=== PATIENT | male | born 1980 | race Caucasian/White ===

== ENCOUNTER 2017-01-08 22:56 | Emergency (ER) | payer SELFPAY ==
[2017-01-08] MEDS ORDERED: Metoclopramide 10 MG/2 ML SDV IVPUSH ONE (23:07)
--- NOTE | 2017-01-08 23:08 | EDM.PDOC ---
ED HPI Behavioral Health - General Chief Complaint: Drug or Alcohol Abuse Stated Complaint: [facility] Time Seen by Provider: 01/08/17 23:04 Source of Information: Reports: Patient, EMS notes reviewed, Police Exam Limitations: Reports: No limitations - History of Present Illness INITIAL COMMENTS - FREE TEXT/NARRATIVE: 36-year-old male arrives in the ambulance bay by [facility]. They were called out to him male who had collapsed to the floor and was not breathing. Ange also attended the scene. It appears the patient is a heroin addict and had just injected his left antecubital fossa with a heroine or heroine product. Apparently this caused him to collapse in the hallway landing hard on the back of his head. He was found by friends who attended the found on the floor. He was found unresponsive lying on his face. Initially they did not think he was breathing. With vigorous stimulation they feel they were able to get him to start to take a few breaths. On paramedics arrival was recognized that he had puncture valenzuela to both antecubital fossa is and was using heroine. He was given a lot so 2 mg intravenously and woke up promptly. Apparently no vomiting occurred. The patient really has no recollection of what has happened to him. He openly admits to using heroine intravenously. He has the appearance of drug addiction and is suffering malnutrition. You often uses marijuana and does use alcohol as well. Upon arrival he is alert and able to answer all questions. He wishes confused as to what had happened and transpired. He recognized that he barely escaped secondary to opiate overdose, please identified opiates in his pockets and the needles. They are investigating the home where he has residing. Apparently it is well-known to them. Onset of Symptoms: Reports: today Symptom Onset Date: 01/08/17 Symptom Onset Time: 22:30 Duration of Symptoms: Reports: Minutes:, Resolved prior to arrival (after given Narcan 2 mg IV.) Severity: severe Context, Behavioral Health: Reports: other (substance abuse opiate addiction). Denies: living situation, school/work, family dynamics Associated Symptoms: Denies: depression, decreased concentration, hallucinations , auditory, homicidal thoughts, hallucinations, visual, insomnia, ingestion:, paranoia - SAD Persons Scale (SPS) SPS Sex: Male SPS Age: Between 18-65 Years of Age SPS Depression: No SPS Previous Suicide Attempts: No SPS Alcohol Abuse/Drug Abuse: Yes SPS Rational Thinking Loss: No SPS Social Support Deficit: No SPS Organized Suicide Plan: No SPS No Spouse/Significant Other: Yes SPS Sickness: No SPS Sad Person Scale Score: 3 - Related Data Allergies Allergy/AdvReac Type Severity Reaction Status Date / Time No Known Allergies Allergy Verified 01/08/17 23:07 Home Medications: Home Meds . [No Known Home Meds] 01/08/17 [History] back of head Pain Score (Numeric/FACES): 5 Social & Family History - Tobacco Use Smoking Status *Q: Current Every Day Smoker Years of Tobacco use: 15 - Recreational Drug Use Recreational Drug Use: No - Living Situation & Occupation Living situation: Reports: single Occupation: unemployed ED ROS GENERAL - Review of Systems Review Of Systems: See Below Constitutional: Reports: malaise, weakness, fatigue, decreased appetite. Denies : fever, chills, weight loss HEENT: Reports: No symptoms Respiratory: Reports: cough (from smoking cigarettes.) Cardiovascular: Reports: No symptoms Endocrine: Reports: no symptoms GI/Abdominal: Reports: Nausea : Reports: no symptoms (mild nausea at this time) Musculoskeletal: Reports: no symptoms Skin: Reports: no symptoms Neurological: Reports: no symptoms Psychiatric: Reports: No symptoms ED EXAM, BEHAVIORAL HEALTH - Physical Exam Exam: See Below Exam Limited By: No limitations General Appearance: alert, WD/WN, anxious (confused.) Eye Exam: bilateral eye: PERRL (sluggish response to light) Throat/Mouth: Normal inspection, Normal lips, Normal teeth, Normal oropharynx Head: other (complains of pain occipital scalp.no open wounds or bleeding.). No : facial swelling, facial tenderness Neck: normal inspection, supple, tender lateral (bilaterally mid cervical spine. ), tender midline (Gatorade mid cervical spine.). No: carotid bruit, lymphadenopathy (L), lymphadenopathy (R) Respiratory/Chest: no respiratory distress, lungs clear, normal breath sounds, no accessory muscle use Cardiovascular: normal peripheral pulses, regular rate, rhythm, no edema, no gallop, no murmur, tachycardia (tachycardia at rest.) GI/Abdominal: normal bowel sounds, soft, non tender, no organomegaly, no abnormal bruit Back Exam: normal inspection, full range of motion. No: CVA tenderness (L), CVA tenderness (R) Extremities: other (multiple needle track valenzuela in both antecubital fossa is recent use of the left side noted.) Neurological: alert, normal mood/affect, CN II-XII intact, normal cognition Psychiatric: alert, normal cognition, oriented Skin Exam: Warm, Dry, Intact, Normal color, No rash COURSE, BEHAVIORAL HEALTH COMP - Course Vital Signs: Last Vital Signs Temp 36.9 C 01/08/17 22:58 Pulse 107 H 01/09/17 00:30 Resp 17 01/09/17 00:30 BP 110/70 01/09/17 00:30 Pulse Ox 96 01/09/17 00:30 Orders, Labs, Meds: Active Orders 24 hr Category Date Time Status Cervical Spine wo Cont [CT] Stat Exams 01/08/17 23:06 Taken Chest 1V Frontal [CR] Stat Exams 01/08/17 23:06 Taken Head wo Cont [CT] Stat Exams 01/08/17 23:15 Taken Laboratory Tests 01/08/17 01/08/17 Range/Units 23:22 23:22 WBC 4.88 (4.23-9.07) K/mm3 RBC 4.89 (4.63-6.08) M/mm3 Hgb 14.1 (13.7-17.5) gm/L Hct 41.7 (40.1-51.0) % MCV 85.3 (79.0-92.2) fl MCH 28.8 (25.7-32.2) pg MCHC 33.8 (32.2-35.5) g/dl RDW Std Deviation 44.9 H (35.1-43.9) fL Plt Count 221 (163-337) K/mm3 MPV 9.5 (9.4-12.3) fl Neutrophils % (Manual) 71 H (40-60) % Band Neutrophils % 0 (0-10) % Lymphocytes % (Manual) 23 (20-40) % Atypical Lymphs % 0 % Monocytes % (Manual) 5 (2-10) % Eosinophils % (Manual) 0 L (0.8-7.0) % Basophils % (Manual) 1 (0.2-1.2) Toxic Granulation 1+ slight Platelet Estimate Adequate Plt Morphology Comment Normal RBC Morph Comment Normal Sodium 140 (136-145) mEq/L Potassium 4.2 (3.5-5.1) mEq/L Chloride 105 (98-107) mEq/L Carbon Dioxide 27 (21-32) mEq/L Anion Gap 12.2 (5-15) BUN 14 (7-18) mg/dL Creatinine 1.2 (0.7-1.3) mg/dL Est Cr Clr Drug Dosing 82.33 mL/min Estimated GFR (MDRD) > 60 (>60) mL/min BUN/Creatinine Ratio 11.7 L (14-18) Glucose 163 H (74-106) mg/dL Calcium 8.5 (8.5-10.1) mg/dL Total Bilirubin 0.4 (0.2-1.0) mg/dL AST 78 H (15-37) U/L ALT 54 (16-63) U/L Alkaline Phosphatase 143 H (46-116) U/L C-Reactive Protein 0.7 (<1.0) mg/dL Total Protein 8.3 H (6.4-8.2) g/dl Albumin 3.4 (3.4-5.0) g/dl Globulin 4.9 gm/dL Albumin/Globulin Ratio 0.7 L (1-2) Medications Discontinued Medications Generic Name Dose Route Start Last Admin Trade Name Freq PRN Reason Stop Dose Admin Ceftriaxone Sodium 1 gm/ 100 mls @ 200 mls/hr 01/09/17 00:37 Sodium Chloride IV 01/09/17 01:06 ONETIME ONE Metoclopramide HCl 7.5 mg 01/08/17 23:07 01/08/17 23:15 Reglan IVPUSH 01/08/17 23:08 7.5 mg ONETIME ONE Administration Re-Assessment/Re-Exam Date: 01/09/17 (CT of the head and neck are within normal limits with no intracranial bleeding and no fractures in the cervical spine. The chemistry is completely normal at this time other than mildly elevated AST at 78 ALT of 54 alkaline phosphatase 143.) Re-Assessment/Re-Exam Time: 00:20 (CT of the head and cervical spine were within normal limits with no intracranial bleeding or fracture the skull. Similarly no fractures identified in the cervical spine. Lab work also proved to be within normal limits.) Departure - Departure Time of Disposition: 00:31 Disposition: Home, Self-Care 01 Condition: fair Clinical Impression: Accidental overdose of heroin Qualifiers: Encounter type: initial encounter Qualified Code(s): T40.1X1A - Poisoning by heroin, accidental (unintentional), initial encounter Instructions: Drug Overdose Referrals: PCP,Unknown [Primary Care Provider] - Additional Instructions: evaluation through the emergency room tonight in regards to accidental overdose of heroin. This caused her to collapse in a hallway striking the back of your head and injuring her neck during the fall. You were found unresponsive and barely breathing. Paramedics were able to resuscitate she'll with Narcan intravenously. This reversed the effect of the heroine causing respiratory depression. CT scan of your head and neck was performed in the ED to make sure there was no severe injuries to the brain or neck and they turned out to be normal. Lab tests were also otherwise normal. He is survived this heroine overdose. Strongly suggest you seek treatment for opiate addiction.Continued use of intravenous opiates otherwise will eventually likelyend up taking her life. You can call [facility] at [phone] which is a [facility]-sponsored alcohol and drug addiction clinic. You can also call Eugene Mcdowell and she is a drug and alcohol counselor at [phone] if you decide you would like to stop using opiates. - My Orders Last 24 Hours: My Active Orders 01/08/17 23:06 Cervical Spine wo Cont [CT] Stat Chest 1V Frontal [CR] Stat 01/08/17 23:15 Head wo Cont [CT] Stat - Assessment/Plan Last 24 Hours: My Active Orders 01/08/17 23:06 Cervical Spine wo Cont [CT] Stat Chest 1V Frontal [CR] Stat 01/08/17 23:15 Head wo Cont [CT] Stat
[2017-01-09] MEDS ORDERED: cefTRIAXone 1 GM in Sodium Chloride 0.9% 100 ML IV ONE (00:37)
[2017-01-09 00:44] VITALS: BP 110/70
--- NOTE | 2017-01-09 07:14 | CR ---
Chest: Portable view of the chest was obtained. Comparison: No previous chest x-ray. Prominent left hilum is seen felt to represent vascular confluence from the pulmonary artery. This is felt to be incidental. Mediastinum and cardiac silhouette are otherwise unremarkable. Lungs are clear with no acute infiltrates. Bony structures are grossly intact. Impression: 1. Findings felt to be incidental as noted above. Nothing acute is identified on portable chest x-ray. Diagnostic code #1
--- NOTE | 2017-01-09 07:14 | CT ---
Head CT Technique: Multiple axial sections through the brain were obtained. Intravenous contrast was not utilized. Comparison: No previous intracranial imaging. Findings: Ventricles along with basal cisterns and sulci over the convexities appear within normal limits for the patient's age. No abnormal parenchymal densities are seen. No evidence of intracranial hemorrhage. No midline shift or mass effect is seen. Bone window settings were reviewed which show the visualized sinuses to appear clear. Mastoid sinuses appear to be clear. Middle ear cavities are clear. No acute calvarial abnormality is seen. Impression: 1. No acute intracranial abnormality is identified. Diagnostic code #1 I agree with preliminary report issued by [employer] (preliminary report dictated on 01/09/17, 12:40 AM Central Time)
--- NOTE | 2017-01-09 07:14 | CT ---
CT cervical spine Technique: Multiple axial sections were obtained from above C1 inferiorly to the bottom of T2. Reconstructed sagittal and coronal images were reviewed. Comparison: No previous cervical spine imaging is available. Findings: Minimal mucosal thickening seen within a portion of the left and right maxillary sinuses which is felt to be incidental. Mastoid sinuses that are seen appear clear. Visualized portions of the middle ear cavity are clear. Incidental cerumen seen within the external auditory canals. Posterior skull base is intact. Vertebral body heights and disc spaces are maintained. Vertebral bodies and posterior arches are intact with no fracture being seen. Slight reversal of the normal cervical curvature is seen which is most likely due to position with change from mild soft tissue spasm also within the differential. No abnormal subluxation is seen. Impression: 1. Findings felt to be incidental as noted above. Nothing acute is seen on CT study of the cervical spine. Diagnostic code #2 I agree with preliminary report issued by [facility] (preliminary report dictated on 01/09/17, 12:45 AM Central Time)
== END 2017-01-09 00:45 | disposition home or self-care (01) ==
LOC: JD.ED 22:56
DX: T40.1X1A Poisoning by heroin, accidental (unintentional), initial encounter (principal); F17.200 Nicotine dependence, unspecified, uncomplicated
CPT/HCPCS: 36415; 70450; 71010; 72125; 80053; 85025; 86140; 96374; 99285; J2765; 99284